=== PATIENT | female | born 1940 | race Caucasian/White ===

== ENCOUNTER → 2017-10-09 | Outpatient (CLI) | payer MEDICARE, OTHER ==
[~2017-10-09] MED LIST: CLON0.1T PO; PRED2.5T PO; SERT25TA4 PO
--- NOTE | 2017-10-09 11:26 | KCIC ---
DATE: 10/09/2017 EXAM: MAMMO DAVID SCREENING BILATERAL HISTORY: Routine screening COMPARISON: Please mammogram from 2016 and 2015 This study was interpreted with the benefit of Computerized Aided Detection (CAD). FINDINGS: Breast Density: HETERO The breast parenchyma Is heterogeneously dense, which could reduce sensitivity of mammography. Breast parenchyma level C. The skin and nipples are within normal limits. No suspicious calcifications, spiculated masses or areas of architectural distortion. Benign bilateral calcifications. IMPRESSION: No mammographic evidence of malignancy. Stable mammogram. BI-RADS CATEGORY: 2 BENIGN FINDING(S) RECOMMENDED FOLLOW-UP: 12M 12 MONTH FOLLOW-UP PQRS compliance statement: Patient information was entered into a reminder system with a target due date 10/09/2018 for the next mammogram. Mammography is a sensitive method for finding small breast cancers, but it does not detect them all and is not a substitute for careful clinical examination. A negative mammogram does not negate a clinically suspicious finding and should not result in delay in biopsying a clinically suspicious abnormality. "Our facility is accredited by the [employer] Mammography [employer]."
== END | disposition home or self-care (01) ==
LOC: KCIC MAMMO 10:00
PROVIDERS: ATTEND Obstetrics & Gynecology
DX: Z12.31 Encounter for screening mammogram for malignant neoplasm of breast (principal)
CPT/HCPCS: 77063; G0202; 77067

== ENCOUNTER → 2018-10-13 | Outpatient (CLI) | payer MEDICARE, OTHER ==
--- NOTE | 2018-10-14 09:44 | KCIC ---
Bilateral digital screening mammograms with 3-D tomosynthesis: Reason for examination: Routine screening. Comparison is made to previous studies dated 10/09/2017 and 10/08/2016. Bilateral mammograms in CC and oblique projections were obtained with 2-D imaging and 3-D tomosynthesis imaging on a Siemens Inspiration unit and reviewed on the workstation. Interpretation was made with the benefit of CAD. The skin and nipples show no abnormalities. No abnormal axillary lymph nodes are seen. The breast parenchyma is heterogeneously dense. (Breast density: Category C.) There are no dominant masses, suspicious calcifications or architectural distortion. Benign calcifications are present. Impression: No evidence of malignancy. Recommend routine screening. Your patient's mammogram demonstrates that she has dense breast tissue (breast density category C or D), which could hide abnormalities, and if she has other risk factors for breast cancer that have been identified, she might benefit from supplemental screening tests that may be suggested by you as her ordering physician. Dense breast tissue, in and of itself, is a relatively common condition. Therefore, this information is not provided to cause undue concern, but rather to raise your awareness and to promote discussion with your patient regarding the presence of other risk factors, in addition to dense breast tissue. Your patient's mammography results will be sent to her. BI-RAD Category 2: Benign. "Our facility is accredited by the [employer] Mammography [employer]." This patient's information has been entered into a reminder system for the patient to be notified with the results of her examination and a target date for the next mammogram. Electronically signed by: Natalie Lao MD (10/14/2018 9:40 AM) [id number]
== END | disposition home or self-care (01) ==
LOC: KCIC MAMMO 13:04
PROVIDERS: ATTEND Obstetrics & Gynecology
DX: Z12.31 Encounter for screening mammogram for malignant neoplasm of breast (principal)
CPT/HCPCS: 77063; 77067

== ENCOUNTER → 2019-11-09 | Outpatient (CLI) | payer MEDICARE, OTHER ==
--- NOTE | 2019-11-09 17:24 | KCIC ---
BILATERAL SCREENING MAMMOGRAM, 3-D History: Routine screening. Comparison: Bilateral mammogram 10/13/2018 and dating back to 2014. Technique: MLO and CC digital tomosynthesis (3D) images obtained. Radiologist reviewed these images on dedicated workstation. Findings: Breast Tissue Density C : The breasts are heterogeneously dense, which may obscure small masses. A few benign calcifications are noted. There are no dominant masses, suspicious microcalcifications, or architectural distortion. IMPRESSION: No mammographic evidence of malignancy. Recommend routine screening. BI-RADS category 2: Benign findings. The images were reviewed with computer-aided detection. Patient information is entered into reminder system with a target due date for the next screening mammogram. Mammography is the most sensitive method for finding small breast cancers, but it does not detect them all and is not a substitute for careful clinical examination. A negative mammogram does not negate a clinically suspicious finding and should not result in delay in biopsying a clinically suspicious abnormality. "Our facility is accredited by the [employer] Mammography Program." Electronically signed by: Prasad Chaves MD (11/09/2019 5:21 PM) [email or web address]
== END ==
LOC: KCIC MAMMO 12:06
PROVIDERS: ATTEND Obstetrics & Gynecology
DX: Z12.31 Encounter for screening mammogram for malignant neoplasm of breast (principal); N64.89 Other specified disorders of breast
CPT/HCPCS: 77063; 77067

== ENCOUNTER → 2020-04-21 | Outpatient (CLI) | payer MEDICARE, OTHER ==
--- NOTE | 2020-04-21 15:29 | RAD ---
Pelvic ultrasound to include transabdominal and transvaginal imaging 04/21/2020 CLINICAL HISTORY: Abnormal outside CT scan. TECHNIQUE: Using the distended urinary bladder as a sonographic window, a real-time ultrasound examination of the pelvis was performed. Additionally in an attempt to better evaluate the uterus and adnexa, a transvaginal ultrasound study was performed. Multiple images were obtained. FINDINGS: No previous imaging studies are available for comparison. The outside CT report is unavailable for comparison. The uterus is normal in size. It measures 7.3 x 5.2 x 3.3 cm in longitudinal, transverse, and AP dimensions. A heterogeneous mass is seen within the superior body/fundus of the uterus. It is centrally located. It is difficult to determine if it involves the endometrium. This mass measures 3.2 x 2.7 x 2.5 cm in longitudinal, transverse and AP dimensions. No additional abnormality of the uterus is seen. Neither ovary is visualized likely due to the patient's age. No adnexal mass is seen. No free fluid is noted. IMPRESSION: 3.2 cm heterogeneous mass is seen within the uterine fundus which possibly involves the endometrium. Differential etiologies for this would include a fibroid versus endometrial carcinoma. Clinical correlation is recommended. Electronically signed by: Radu Beatty MD (04/21/2020 3:26 PM) [id number]
== END | disposition home or self-care (01) ==
LOC: US 12:14
PROVIDERS: ATTEND Internal Medicine
DX: D25.9 Leiomyoma of uterus, unspecified (principal); R93.89 Abnormal findings on diagnostic imaging of other specified body structures
CPT/HCPCS: 76830; 76856

== ENCOUNTER → 2020-08-31 | Outpatient (CLI) | payer MEDICARE, OTHER ==
--- NOTE | 2020-08-31 12:09 | RAD ---
EXAM: CT CHEST WITHOUT CONTRAST HISTORY: Lung nodule COMPARISON: None TECHNIQUE: Helical CT of the chest performed without contrast. Coronal and sagittal reformats were obtained. One or more of the following individualized dose reduction techniques were utilized for this examination: 1. Automated exposure control 2. Adjustment of the mA and/or kV according to patient size 3. Use of iterative reconstruction technique. FINDINGS: Thyroid gland and thoracic inlet: Visualized portion of the thyroid gland is normal. Heart and great vessels: The heart is normal in size. No pericardial effusion. Thoracic aorta is normal in caliber. Mediastinum and [place]: There are few small mediastinal lymph nodes, likely reactive. Lungs and pleura: There are multiple small noncalcified pulmonary nodules. This includes two 6 mm pulmonary nodules in the left upper lobe (image 55 and 75), a 6 mm a juxta fissural pulmonary nodule in the left upper lobe measuring 3 mm (image 110), a 4 mm subpleural pulmonary nodule in the left upper lobe (image 125). A 6 mm pulmonary nodule in the left lower lobe with indistinct margins (image 195). A 7 mm linear nodular opacity in the right lower lobe (image 47). A 5 mm juxta fissural nodule in the right upper lobe (image 128) and a 5 mm pulmonary nodule in the right apex (image 63).. There are a few additional smaller noncalcified pulmonary nodules and several scattered calcified granulomas. There is pleural-parenchymal scarring in apices. Nonspecific subpleural reticular changes are seen throughout both lungs, predominantly in a dependent distribution. There is mosaic attenuation, likely reflecting air trapping. Small area of traction bronchiectasis in the left upper lobe. No pleural effusion Chest wall and axillae: Normal. Upper abdomen: Upper abdomen is unremarkable. Bones: No acute osseous abnormality. The bones appear demineralized. There is mild thoracolumbar scoliosis. IMPRESSION: 1. Multiple small noncalcified pulmonary nodules measuring up to 7 mm. Recommend follow-up CT in 6 months to ensure stability, according to Fleischner Society guidelines below. 2. Mild interstitial changes and air trapping in the lungs. According to Fleischner Society Guidelines for solid pulmonary nodules (Radiology 2017; 000:1?16): In low risk multiple nodule patient: <6mm - No follow up required. 6-8mm - CT at 6-12 months, then consider CT at 18-24 months >8mm - CT at 6-12 months, then consider CT at 18-24 months Use most suspicious nodule as guide to management. Follow-up intervals may vary according to size and risk In high risk multiple nodule patient: <6mm - Optional 12 month follow up. 6-8mm - CT at 3-6 months, then CT at 18-24 months >8mm - CT at 3-6 months, then CT at 18-24 months Use most suspicious nodule as guide to management. Follow-up intervals may vary according to size and risk 1. Electronically signed by: Daly De Guzman MD (08/31/2020 12:06 PM) [id number]
== END ==
LOC: CT 09:30
PROVIDERS: ATTEND Internal Medicine Pulmonary Disease
DX: R91.8 Other nonspecific abnormal finding of lung field (principal); J84.10 Pulmonary fibrosis, unspecified; J84.9 Interstitial pulmonary disease, unspecified; M81.0 Age-related osteoporosis without current pathological fracture
CPT/HCPCS: 71250

== ENCOUNTER → 2020-11-09 | Outpatient (CLI) | payer MEDICARE, OTHER ==
[~2020-11-09] MED LIST changes: +IOHEXOL 240 MG/ML 50ML VIAL. PO ONE
--- NOTE | 2020-11-10 12:05 | KCIC ---
EXAM: CT Abdomen and Pelvis without IV contrast INDICATION: Reason: / Spl. Instructions: Hematuria, pelvic and abdominal pain. / History: Ordered or al contrast only. TECHNIQUE: Multi-detector row CT images were acquired from the lung bases through the abdomen and pel vis without the use of IV contrast. Sagittal and coronal images were acquired from the transaxial eve a. All CT scans performed at this facility utilize dose optimization techniques as appropriate to the exam, including the following: Automated exposure control and adjustment of the mA and/or KV accordi ng to patient size (this includes techniques or standardized protocols for targeted exams where dose is indication/reason for exam). ORAL CONTRAST: None COMPARISON: None FINDINGS: The absence of IV contrast limits evaluation of soft tissue pathology. LOWER CHEST: Unremarkable LIVER: Unremarkable BILIARY SYSTEM: Gallbladder is unremarkable. Bile ducts are not dilated. PANCREAS: Unremarkable SPLEEN: Unremarkable ADRENALS: Unremarkable KIDNEYS & URETERS: Kidneys are unremarkable. A 3 mm punctate calcification (image 78 of series 2) in the right mid abdomen is near the mid right ureter and could represent a nonobstructing right ureter al stone versus a gonadal vein phlebolith. BLADDER: Right posterior lateral bladder diverticulum. REPRODUCTIVE ORGANS: Retroflexed uterus. Dilated left gonadal vein. No adnexal mass. GASTROINTESTINAL: The stomach, small bowel, and colon are unremarkable. The appendix is not well seen but there are no findings of acute appendicitis. MESENTERY/PERITONEUM/RETROPERITONEUM: Unremarkable VASCULAR: Unremarkable LYMPH NODES: No adenopathy OSSEOUS & SOFT TISSUES: No acute or aggressive appearing osseous lesions. IMPRESSION: 1. A 3 mm punctate calcification in the right mid abdomen is near the mid right ureter and could rep resent a nonobstructing right ureteral stone versus a gonadal vein phlebolith. 2. Right posterior lateral bladder diverticulum. 3. Dilated left gonadal vein, can be seen with pelvic congestion syndrome. Electronically signed by: Luca Ashley MD (11/10/2020 12:03 PM) [id number]
== END ==
LOC: KCIC CT 14:27
PROVIDERS: ATTEND Internal Medicine
DX: N28.89 Other specified disorders of kidney and ureter (principal); N32.3 Diverticulum of bladder; N94.89 Other specified conditions associated with female genital organs and menstrual cycle
CPT/HCPCS: 74176; Q9966

== ENCOUNTER → 2020-11-14 | Outpatient (CLI) | payer MEDICARE, OTHER ==
[~2020-11-14] MED LIST changes: -IOHEXOL 240 MG/ML 50ML VIAL. PO ONE
--- NOTE | 2020-11-14 17:12 | KCIC ---
Bilateral digital screening mammograms and tomosynthesis Reason for examination: Routine screening.History of benign breast biopsy. Family history of breast c ancer one of the patient's grandmothers. Comparison is made to previous study dated November 09, 2019 and priors Routine CC and MLO digital views obtained. Interpretation was made with the benefit of CAD. The skin and nipples show no abnormalities. No abnormal axillary lymph nodes are seen. The breast par enchyma is heterogeneously dense. (Breast density: Category C.) There are no suspicious masses, suspi cious calcifications or architectural distortion. Benign bilateral breast calcifications. Impression: Negative mammogram. Recommend routine screening. ?Your patient's mammogram demonstrates that she has dense breast tissue (breast density category C or D), which could hide abnormalities, and if she has other risk factors for breast cancer that have be en identified, she might benefit from supplemental screening tests that may be suggested by you as he r ordering physician. Dense breast tissue, in and of itself, is a relatively common condition. Theref ore, this information is not provided to cause undue concern, but rather to raise your awareness and to promote discussion with your patient regarding the presence of other risk factors, in addition to dense breast tissue. Your patient's mammography results will be sent to her. BI-RAD Category 1: Negative. "Our facility is accredited by the [employer] Mammography Program." This patient's information has been entered into a reminder system for the patient to be notified wit h the results of her examination and a target date for the next mammogram. Electronically signed by: Oscar Justice MD (11/14/2020 5:10 PM) [email or web address]
== END ==
LOC: KCIC MAMMO 13:29
PROVIDERS: ATTEND Obstetrics & Gynecology
DX: Z12.31 Encounter for screening mammogram for malignant neoplasm of breast (principal)
CPT/HCPCS: 77063; 77067

== ENCOUNTER → 2021-02-06 | Outpatient (CLI) | payer MEDICARE, OTHER ==
[~2021-02-06] MED LIST changes: +SERT-266 PO; -SERT25TA4 PO
--- NOTE | 2021-02-06 13:53 | RAD ---
EXAM: CT Chest without IV contrast INDICATION: Reason: MULTIPLE LUNG NODULES / Spl. Instructions: / History: TECHNIQUE: Multi-detector row CT images were acquired from the thoracic inlet through the upper abdo men without the use of IV contrast. Sagittal and coronal images were acquired from the transaxial eve a. All CT scans performed at this facility utilize dose optimization techniques as appropriate to the exam, including the following: Automated exposure control and adjustment of the mA and/or KV accordi ng to patient size (this includes techniques or standardized protocols for targeted exams where dose is indication/reason for exam). COMPARISON: CT chest without IV contrast of 08/31/2020 FINDINGS: The absence of IV contrast limits evaluation of soft tissue pathology. CARDIOVASCULAR: Scattered coronary arterial calcifications. Normal caliber thoracic aorta. Normal he art size. MEDIASTINUM & DARCI: No masses. Stable mild prominence of the mediastinal lymph nodes. No adenopathy. LUNGS: Multiple pulmonary nodules noted previously remain present, mostly unchanged, though some are less we ll seen on this examination. At least one additional nodule has developed in the interval. These nodu les are present in the setting of diffuse subpleural reticular densities and tubular bronchiectasis, with subtle mosaic attenuation to the lungs. A 7 mm pulmonary nodule with similar to extension to the major fissure in the lateral aspect of this area segment right lower lobe has developed (image 145 of axial series 3) from a smaller, less well-d efined opacity on the previous exam) 56 series 3). The two 6 mm pulmonary nodules at the left upper lobe (reported on images 55 and 75 on the prior stud y) are unchanged (images 45 and 67 this exam). The 3 mm juxta fissural pulmonary nodule in the left upper lobe reported on image 110 of the previous exam is unchanged (image 98 this exam). The 4 mm subpleural nodule reported on image 125 on the previous exam in the peripheral left upper lo be is also unchanged (image 117 this exam). The 7 mm left lower lobe nodule previously reported with indistinct margins on image 195 is unchanged (image 189 this exam). The 5 mm juxta fissural nodule reported on image 128 in the right upper lobe is unchanged (image 124 this exam). The other reported pulmonary nodules are not as well seen on this examination. PLEURAL SPACE: No pleural effusions or pneumothorax. OSSEOUS & SOFT TISSUE: Degenerative changes in the thoracic spine at T7-T8. ABDOMEN: The visualized portions of the upper abdomen are unremarkable. IMPRESSION: Multiple noncalcified pulmonary nodules, overall stable from prior but somewhat less apparent in the interval and appears new. These are favored inflammatory but follow-up per Fleischner Society guideli jv is recommended for an additional follow-up at 18-24 months from the initial exam. Electronically signed by: Luca Ashley MD (02/06/2021 1:51 PM) [id number]
== END ==
LOC: CT 08:55
PROVIDERS: ATTEND Internal Medicine Pulmonary Disease
DX: R91.8 Other nonspecific abnormal finding of lung field (principal)
CPT/HCPCS: 71250

== ENCOUNTER → 2021-06-05 | Outpatient (CLI) | payer MEDICARE ==
--- NOTE | 2021-06-05 14:16 | KCIC ---
EXAMINATION: Magnetic resonance imaging (MRI) of the brain and brainstem without contrast 06/05/2021 1 2:25 PM HISTORY: Headache and disequilibrium TECHNIQUE: Multiplanar multi-weighted MRI of the brain and brainstem was performed without intravenou s contrast using the general brain protocol. COMPARISON: None available. FINDINGS: The scalp and calvarium are normal. The superior sagittal sinus demonstrates normal venous flow. The corpus callosum is normal in shape and signal intensity. There is a remote lacunar infarct in the la teral left cerebellum. The pituitary and sella are normal. The brainstem and craniocervical junctio n are unremarkable. There are T2/FLAIR signal hyperintense foci in the periventricular and subcortica l white matter most suggestive of mild chronic small vessel ischemic changes. Diffusion weighted images reveal no hyperintensities to suggest acute cerebral infarction. The suscep tibility weighted sequences reveal no evidence of acute or chronic hemorrhage. The ventricles are nor mal in size and position without evidence of hydrocephalus. Mild mucosal thickening of the right maxillary sinus. Mild mucosal thickening of the anterior ethmoid air cells. The visualized portions of the mastoids are unremarkable. The orbits appear normal with exception of bilateral lens replacement. Normal flow voids are demonstrated in the carotid arteries and basilar artery. IMPRESSION: 1. No evidence for acute or subacute ischemia. 2. 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 3. There are T2/FLAIR signal hyperintense foci in the periventricular and subcortical white matter mo st suggestive of mild chronic small vessel ischemic changes. 4. Mild mucosal thickening of the right maxillary sinus and anterior ethmoid air cells. Electronically signed by: Priscilla Mancini MD (06/05/2021 2:13 PM) [id number]
== END ==
LOC: KCIC MRI 12:20
PROVIDERS: ATTEND Nurse Practitioner Family
DX: I63.81 Other cerebral infarction due to occlusion or stenosis of small artery (principal); R51.9 Headache, unspecified; R42 Dizziness and giddiness; J34.89 Other specified disorders of nose and nasal sinuses
CPT/HCPCS: 70551

== ENCOUNTER → 2021-07-20 | Outpatient (CLI) | payer MEDICARE ==
--- NOTE | 2021-07-20 12:32 | KCIC ---
Exam : Carotid Duplex with Grayscale Ultrasound and Spectral and Color Doppler Analysis 07/20/2021 12:2 7 PM Clinical Indications: Reason: Dizziness; Disequilibrium; Headache; CVA on MRI 06-05-21. Instru ctions: / History: Comparison study: None available. PQRS Compliance Statement - Stenosis calculations for CT, MR and conventional angiography are based u everton measurement of the distal ICA diameter in accordance with the NASCET methodology. Stenosis calcu lations for carotid ultrasound studies are derived from validated velocity criteria which are known t o correlate with the NASCET methodology. Findings: The common, internal and external carotid arteries were examined by grayscale, color and spectral Do ppler ultrasound. Mild atherosclerotic vascular disease is seen in the carotid bulbs. No high-grade n arrowing is identified on color Doppler imaging. Vertebral flows antegrade bilaterally. The following are the velocities and ratios in the carotid arteries on both sides: RIGHT ICA PV: 75cm/sec RIGHT CCA PV: 88cm/sec RIGHT ICA ED: 18cm/sec RIGHT IC/CCPV: Less than 2 RIGHT VERTEBRAL: antegrade flow LEFT ICA PV: 79cm/sec LEFT CCA PV: 75cm/sec LEFT ICA ED: 24cm/sec LEFT IC/CCPV: Less than 2 LEFT VERTEBRAL: antegrade flow <50% ICA Stenosis: PSV < 125cm/s (EDV < 40cm/s; SVR < 2.0) 50-69% ICA Stenosis: PSV < 125-229cm/s (EDV 40-99cm/s; SVR 2.0-3.9) >70% ICA Stenosis: PSV > 230cm/s (EDV >100cm/s; SVR >4.0) Impression: Mild atherosclerotic vascular disease, predominantly at the carotid bulbs, with less than 50% percent stenosis of the bilateral internal carotid arteries by ultrasound criterion Electronically signed by: Paul Dobbs MD (07/20/2021 12:29 PM) [id number]
== END ==
LOC: KCIC US 09:47
PROVIDERS: ATTEND Nurse Practitioner Family
DX: I65.23 Occlusion and stenosis of bilateral carotid arteries (principal); R51.9 Headache, unspecified; E87.8 Other disorders of electrolyte and fluid balance, not elsewhere classified; R42 Dizziness and giddiness
CPT/HCPCS: 93880

== ENCOUNTER → 2021-10-18 | Outpatient (CLI) | payer MEDICARE ==
--- NOTE | 2021-10-18 13:39 | KCIC ---
DG VIDEO SWALLOW STUDY History:Reason: Chronic dysphagia. / Spl. Instructions: 2min 55 sec fl. 39 images. / History: Comparison studies: None. Technique: Esophagram was performed utilizing double contrast upright examination, single contrast pr one examination, and cine evaluation of cervical esophageal swallow function. Findings: Barium swallow was performed without difficulty. No mucosal abnormalities. No gastroesophag eal reflux or hiatal hernia. No esophageal diverticulum. Fundus of the stomach was unremarkable. Mild esophageal dysmotility with proximal escape, slow transit and tertiary contractions. Prominent crico pharyngeus muscle. Fluoroscopic time: 2 minutes 55 seconds Fluoroscopic images: 39 IMPRESSION: 1. Prominent cricopharyngeal bar. 2. Mild esophageal dysmotility. Electronically signed by: Deepak Carson DO (10/18/2021 1:37 PM) [id number]
== END ==
LOC: KCIC 08:19
PROVIDERS: ATTEND Internal Medicine Gastroenterology
DX: R13.10 Dysphagia, unspecified (principal); K22.4 Dyskinesia of esophagus
CPT/HCPCS: 74220

== ENCOUNTER → 2021-10-19 | Outpatient (CLI) | payer MEDICARE ==
[~2021-10-19] MED LIST changes: +BARIUM SULFATE 40% (APPLE) 148 GM PWD. PO ONE
--- NOTE | 2021-10-19 11:14 | RAD ---
EXAMINATION: DG VIDEO SWALLOW STUDY 10/19/2021 8:57 AM HISTORY: Dysphagia COMPARISON: None. TECHNIQUE: The patient was observed swallowing various consistencies of barium under intermittent flu oroscopy. FINDINGS: Normal swallowing mechanism. No aspiration, penetration, or residuals with any consistency. Total fluoroscopic time:0.9 minutes. Dose:2.40 mGy. IMPRESSION: Normal swallow study. Electronically signed by: Daly De Guzman MD (10/19/2021 11:12 AM) [id number]
== END ==
LOC: RAD 09:37
PROVIDERS: ATTEND Internal Medicine Gastroenterology
DX: R13.10 Dysphagia, unspecified (principal)
CPT/HCPCS: 74230; 92611-GN

== ENCOUNTER → 2021-11-15 | Outpatient (CLI) | payer MEDICARE ==
[~2021-11-15] MED LIST changes: -BARIUM SULFATE 40% (APPLE) 148 GM PWD. PO ONE
--- NOTE | 2021-11-15 17:26 | KCIC ---
Bilateral digital screening mammograms with 3-D tomosynthesis: Reason for examination: Routine screening. Comparison is made to previous studies dated back to 10/04/2015. Bilateral mammograms in CC and oblique projections were obtained with 2-D imaging and 3-D tomosynthes is imaging on a Siemens Inspiration unit and reviewed on the workstation. Interpretation was made wit h the benefit of CAD. The skin and nipples show no abnormalities. No abnormal axillary lymph nodes are seen. The breast par enchyma is heterogeneously dense. (Breast density: Category C.) There are no dominant masses, suspici ous calcifications or architectural distortion. Benign calcifications are present. Impression: No evidence of malignancy. Recommend routine screening. Your patient's mammogram demonstrates that she has dense breast tissue (breast density category C or D), which could hide abnormalities, and if she has other risk factors for breast cancer that have bee n identified, she might benefit from supplemental screening tests that may be suggested by you as her ordering physician. Dense breast tissue, in and of itself, is a relatively common condition. Therefo re, this information is not provided to cause undue concern, but rather to raise your awareness and t o promote discussion with your patient regarding the presence of other risk factors, in addition to d ense breast tissue. Your patient's mammography results will be sent to her. BI-RAD Category 2: Benign. "Our facility is accredited by the [employer] Mammography Program." This patient's information has been entered into a reminder system for the patient to be notified wit h the results of her examination and a target date for the next mammogram. Electronically signed by: Natalie Lao MD (11/15/2021 5:23 PM) [id number]
== END ==
LOC: KCIC MAMMO 14:31
PROVIDERS: ATTEND Internal Medicine
DX: Z12.31 Encounter for screening mammogram for malignant neoplasm of breast (principal)
CPT/HCPCS: 77063; 77067

== ENCOUNTER → 2022-02-16 | Outpatient (CLI) | payer MEDICARE ==
--- NOTE | 2022-02-16 15:09 | RAD ---
EXAMINATION: CT Chest Without IV contrast. INDICATION:82 years, Female, lung nodule. Follow-up exam. COMPARISON: 02/06/2021. TECHNIQUE: Spiral CT was obtained from the jugular notch through the posterior costophrenic recess. 3 -D MIPS, sagittal and coronal reformats were obtained. Exposure: One or more of the following individualized dose reduction techniques were utilized for thi s examination: 1. Automated exposure control 2. Adjustment of the mA and/or kV according to patient size 3. Use of iterative reconstruction technique. FINDINGS: LUNGS/PLEURA: Central airways are patent. Biapical and multifocal predominantly posterior pleural thi ckening. Similar diffuse subpleural reticulations with tubular bronchiectatic changes. Centrilobular pulmonary emphysema with multifocal patchy areas of air trapping bilaterally. No focal consolidation, pleural effusion or pneumothorax. Stable multiple bilateral solid pulmonary nodules. For example, fissure based 5 mm nodule in the righ t upper lobe (series 8 image 126). Left lower lobe 6 mm solid pulmonary nodule (series 8 image 195). MEDIASTINUM: No pathologic mediastinal or hilar adenopathy. Calcified left hilar lymph node. The thor acic aorta and pulmonary arteries are normal in caliber. The heart is normal in size. No pericardial effusion. Mild calcified coronary atherosclerosis. The visualized thyroid and the esophagus are unrem arkable. AXILLA/SOFT TISSUE: No supraclavicular or axillary adenopathy. Regional soft tissues are within thee l limits. UPPER ABDOMEN: The visualized upper abdomen appears unremarkable, within the limitation of noncontras t exam. BONES: No evidence of acute fractures or aggressive osseous lesions. IMPRESSION: 1. Stable multiple bilateral subcentimeter solid pulmonary nodules. No new or enlarging pulmonary no dule. 2. Other chronic/incidental findings, as described above. Electronically signed by: Kelsie Baltazar MD (02/16/2022 3:06 PM) [facility]
== END ==
LOC: CT 11:06
PROVIDERS: ATTEND Internal Medicine Pulmonary Disease
DX: R91.8 Other nonspecific abnormal finding of lung field (principal); I25.10 Atherosclerotic heart disease of native coronary artery without angina pectoris; J43.2 Centrilobular emphysema; I89.8 Other specified noninfective disorders of lymphatic vessels and lymph nodes; J47.9 Bronchiectasis, uncomplicated; J84.89 Other specified interstitial pulmonary diseases
CPT/HCPCS: 71250